=== PATIENT | female | born 1970 | race African-American/Black ===

== ENCOUNTER → 2023-11-15 | Day surgery (SDC) | payer OTHER | END | disposition home or self-care (01) | LOC: JMAMMO-SUR 08:45 | PROVIDERS: ATTEND Internal Medicine | PROC: 0H9U3ZX Drainage of Left Breast, Percutaneous Approach, Diagnostic (ICD-10-PCS; principal; 2023-11-15) | DX: N63.20 Unspecified lump in the left breast, unspecified quadrant (principal) | CPT/HCPCS: 19083; 87899; A4648 ==

== ENCOUNTER 2024-01-13 18:16 | Emergency (ER) | payer OTHER ==
[2024-01-13 18:23] VITALS: TEMP 98.9; BMI 27.3
[2024-01-13] MEDS ORDERED: ACETAMINOPHEN INJECTION 100 ML IVPB ONE (19:00)
[2024-01-13] MEDS ORDERED: METOCLOPRAMIDE HCL INJECTION 10 MG/2 ML VIAL ONE (19:00)
[2024-01-13] MEDS: METOCLOPRAMIDE HCL INJECTION 10 MG/2 ML VIAL IVPUSH ONE (19:30)
[2024-01-13] MEDS: ACETAMINOPHEN 1000 MG/100 ML BAG IVPB ONE (19:30)
[2024-01-13] MEDS: SODIUM CHLORIDE 0.9% 500 ML INFUS.BAG IV ONE (19:30)
[2024-01-13 19:47] LABS: BASO % 0.7 % (0-2.0); EOS % 0.4 % (0-4.5); HEMATOCRIT 43.3 % (32.4-45.2); HEMOGLOBIN 14.7 GM/dL (10.7-15.3); LYMPH % 20.6 % (8-40); MCH 31.1 pg (25.7-33.7); MCHC 33.9 g/dl (32.0-36.0); MEAN CELL VOLUME 91.9 fl (80-96); MEAN PLT VOLUME 8.9 fl (7.5-11.1); MONO % 12.5 % (3.8-10.2); NEUT % 65.8 % (42.8-82.8); PLATELET COUNT 254 10^3/uL (134-434); RBC 4.71 M/mm3 (3.60-5.2); RDW 13.5 % (11.6-15.6); WHITE BLOOD COUNT 6.8 K/mm3 (4.0-10.0)
[2024-01-13 19:49] LABS: EPI CELLS 14 /uL (0-25.1); HYALINE CASTS 0 /uL (0-3.1); PH,URINE 8.5 (5.0-8.0); URINE APPEARANCE Error; URINE BACTERIA 407 /uL (0-1359); URINE BILIRUBIN NEGATIVE (NEGATIVE); URINE COLOR YELLOW; URINE GLUCOSE (UA) NEGATIVE (NEGATIVE); URINE KETONE NEGATIVE (NEGATIVE); URINE LEUK ESTERASE 1+ (NEGATIVE); URINE NITRITE NEGATIVE (NEGATIVE); URINE PROTEIN NEGATIVE (NEGATIVE); URINE RBC 12 /uL (0-23.9); URINE WBC 20 /uL (0-25.8)
[2024-01-13] MEDS ORDERED: CEFTRIAXONE 1 GM/50 ML BAG ONE (20:00)
[2024-01-13 20:05] LABS: POTASSIUM 5.5 mmol/L (3.5-5.1)
[2024-01-13 20:06] LABS: CALCIUM 8.9 mg/dL (8.5-10.1)
[2024-01-13 20:07] LABS: ALBUMIN 3.4 g/dl (3.4-5.0); BLOOD UREA NITROGEN 9.4 mg/dL (7-18)
[2024-01-13 20:12] LABS: BILIRUBIN,TOTAL 2.8 mg/dL (0.2-1)
[2024-01-13] MEDS ORDERED: PROCHLORPERAZINE INJECTION 10 MG/2 ML VIAL ONE (20:39)
[2024-01-13] MEDS: PROCHLORPERAZINE INJECTION 10 MG/2 ML VIAL IVPB ONE (21:09)
[2024-01-13 22:03] VITALS: BP 130/89; PULSE 76; RESP 16
== END 2024-01-13 22:03 | disposition home or self-care (01) ==
LOC: JER 18:16
PROC: 3E03329 Introduction of Other Anti-infective into Peripheral Vein, Percutaneous Approach (ICD-10-PCS; principal; 2024-01-13)
PROC: 3E033NZ Introduction of Analgesics, Hypnotics, Sedatives into Peripheral Vein, Percutaneous Approach (ICD-10-PCS; 2024-01-13)
PROC: 3E033GC Introduction of Other Therapeutic Substance into Peripheral Vein, Percutaneous Approach (ICD-10-PCS; 2024-01-13)
PROC: 3E033GC Introduction of Other Therapeutic Substance into Peripheral Vein, Percutaneous Approach (ICD-10-PCS; 2024-01-13)
DX: N39.0 Urinary tract infection, site not specified (principal); R51.9 Headache, unspecified; R30.0 Dysuria; R35.0 Frequency of micturition; R50.9 Fever, unspecified; Z20.822 Contact with and (suspected) exposure to COVID-19
CPT/HCPCS: 0241U-QW; 36415; 70450-TC; 71046-TC-FY; 80053; 81003; 84132; 85025; 87086; 99285-25; J0131

== ENCOUNTER → 2024-01-15 | Day surgery (SDC) | payer OTHER ==
[~2024-01-15] MED LIST: DEXAMETHASONE SOD PHOSPHATE 4 MG/1 ML VIAL ONE; FENTANYL CITRATE/PF 50 MCG/ML VIAL ONE; LIDOCAINE HCL/PF 2% SDV 5ML VIAL ONE; MIDAZOLAM HCL 2 MG/2 ML SINGLE DOSE VIAL ONE; ONDANSETRON 4 MG/2 ML VIAL ONE; PROPOFOL 80 ML ONE
== END | disposition home or self-care (01) ==
LOC: JRADUS-SUR 09:19 → JMAMMO-SUR 09:19
PROVIDERS: ATTEND Surgery Surgical Oncology
PROC: BH01ZZZ Plain Radiography of Left Breast (ICD-10-PCS; principal; 2024-01-15)
DX: N60.92 Unspecified benign mammary dysplasia of left breast (principal)
CPT/HCPCS: 19281; A4648

== ENCOUNTER 2024-01-17 04:12 | Day surgery (SDC) | payer OTHER ==
[2024-01-11 11:39] VITALS: BMI 27.3
[2024-01-17] MEDS ORDERED: BUPIVACAINE HCL/PF 0.25% (2.5MG/ML) 10 ML VIAL ONE (07:23)
[2024-01-17] MEDS ORDERED: LIDOCAINE 1%/EPI 1:100000 (20 ML MULTI DOSE VIAL) ONE (07:24)
[2024-01-17] MEDS ORDERED: oxyCODONE HCL 5 MG TABLET PO PRN (07:51)
[2024-01-17] MEDS ORDERED: ONDANSETRON 4 MG/2 ML VIAL IVPUSH PRN (07:51)
[2024-01-17] MEDS ORDERED: LACTATED RINGERS SOLUTION 1,000 ML IV SCH (08:00)
[2024-01-17] MEDS: ceFAZolin SODIUM 1 GM VIAL IVPB ONE (08:09)
[2024-01-17] MEDS: LIDOCAINE 1%/EPI 1:100000 (50 ML MULTI DOSE VIAL) INF ONE (08:15)
[2024-01-17] MEDS: BUPIVACAINE HCL/PF 0.25% (2.5MG/ML) 10 ML VIAL IJ ONE ×2 (08:20→08:28)
[2024-01-17] MEDS ORDERED: BENZOIN/ALOE VERA/STORAX/TOLU 58 ML BOTTLE ONE (08:35)
[2024-01-17] MEDS ORDERED: MEPERIDINE HCL 25 MG/ML VIAL ONE (09:32)
[2024-01-17] MEDS: ACETAMINOPHEN 1000 MG/100 ML BAG IVPB ONE (09:35)
[2024-01-17] MEDS: ACETAMINOPHEN INJECTION 100 ML IVPB ONE (09:35)
[2024-01-17 11:59] VITALS: BP 108/56; PULSE 62; RESP 20; TEMP 97.5
== END 2024-01-17 13:42 | disposition home or self-care (01) ==
LOC: JASU-SURG 04:12
PROVIDERS: ATTEND Surgery Surgical Oncology
PROC: 0HBU0ZX Excision of Left Breast, Open Approach, Diagnostic (ICD-10-PCS; principal; 2024-01-17 08:00)
DX: N60.92 Unspecified benign mammary dysplasia of left breast (principal); N60.32 Fibrosclerosis of left breast
CPT/HCPCS: 76098-TC-FY; 81025; 88307-TC; 94760; J0131

== ENCOUNTER 2024-02-29 03:54 | Inpatient (IN) | payer OTHER ==
[2024-02-22 15:57] VITALS: BMI 27.3
[2024-02-29] MEDS ORDERED: ceFAZolin SODIUM 1 GM VIAL ONE ×2 (06:40→08:30)
[2024-02-29] MEDS: GABAPENTIN 300 MG CAPSULE PO ONE (07:00)
[2024-02-29] MEDS: PHENAZOPYRIDINE HCL 100 MG TABLET (FP) PO ONE (07:00)
[2024-02-29] MEDS: ACETAMINOPHEN 500 MG TABLET (FP) PO ONE (07:00)
[2024-02-29] MEDS ORDERED: PROPOFOL 20 ML ONE (07:54)
[2024-02-29] MEDS ORDERED: ROCURONIUM BROMIDE 50 MG/5 ML SYRINGE ONE (07:55)
[2024-02-29] MEDS ORDERED: FENTANYL CITRATE/PF 50 MCG/ML VIAL ONE ×6 (07:55→11:49)
[2024-02-29] MEDS ORDERED: MIDAZOLAM HCL 2 MG/2 ML SINGLE DOSE VIAL ONE (07:55)
[2024-02-29] MEDS: ceFAZolin SODIUM 1 GM VIAL IVPB ONE (08:20)
[2024-02-29] MEDS ORDERED: ONDANSETRON 4 MG/2 ML VIAL ONE (08:30)
[2024-02-29] MEDS ORDERED: DEXAMETHASONE SOD PHOSPHATE 4 MG/1 ML VIAL ONE (08:30)
[2024-02-29] MEDS ORDERED: KETOROLAC TROMETHAMINE 30 MG/1 ML VIAL ONE (08:30)
[2024-02-29] MEDS ORDERED: NEOSTIGMINE METHYLSULFATE 0.5 MG/1 ML - 10 ML MDV ONE (09:15)
[2024-02-29] MEDS ORDERED: GLYCOPYRROLATE 0.2 MG/1 ML VIAL ONE (09:25)
[2024-02-29] MEDS ORDERED: SUCCINYLCHOLINE CHLORIDE 200 MG/10 ML SYRINGE ONE (09:58)
[2024-02-29] MEDS ORDERED: oxyCODONE HCL 5 MG TABLET PO PRN ×3 (10:19→10:25)
[2024-02-29] MEDS ORDERED: ONDANSETRON 4 MG/2 ML VIAL IVPUSH PRN ×2 (10:19)
[2024-02-29] MEDS ORDERED: NALOXONE HCL 0.4 MG/ML VIAL IVPUSH PRN (10:19)
[2024-02-29] MEDS ORDERED: BISACODYL 5 MG TABLET.DR (FP) PO PRN (10:25)
[2024-02-29] MEDS ORDERED: SIMETHICONE 80 MG TAB.CHEW (FP) PO PRN (10:25)
[2024-02-29] MEDS ORDERED: DOCUSATE SODIUM 100 MG CAPSULE (FP) PO PRN (10:25)
[2024-02-29] MEDS: CEFAZOLIN 1 GM in DEXTROSE 5%-WATER - 50 ML IVPB ONE (11:58)
[2024-02-29] MEDS ORDERED: ACETAMINOPHEN INJECTION 100 ML IVPB ONE (12:26)
[2024-02-29] MEDS: ACETAMINOPHEN 1000 MG/100 ML BAG IVPB SCH ×2 (12:30→14:13)
[2024-02-29] MEDS: morphine SULFATE/PF 1 MG/2 ML (2cc Syringe - QUVA) ONE (12:36)
[2024-02-29] MEDS: morphine SULFATE/PF 1 MG/2 ML (2cc Syringe - QUVA) IT ONE (12:37)
[2024-02-29] MEDS: LACTATED RINGERS SOLUTION 1,000 ML IV SCH (13:40)
[2024-02-29] MEDS: ACETAMINOPHEN 325 MG TABLET (FP) PO SCH (14:15)
[2024-02-29] MEDS: FLU VACCINE (FLULAVAL) PF 60 MCG/0.5 ML SYRINGE 2023-2024 IM ONE (15:48)
[2024-02-29] MEDS: CEFAZOLIN 1 GM in DEXTROSE 5%-WATER - 50 ML IVPB SCH (16:05)
[2024-02-29] MEDS: IBUPROFEN 800 MG/8 ML IJ IVPB SCH (16:29)
[2024-02-29 19:59] LABS: HEMATOCRIT 37.5 % (32.4-45.2); HEMOGLOBIN 12.4 GM/dL (10.7-15.3); MCH 31.4 pg (25.7-33.7); MCHC 33.1 g/dl (32.0-36.0); MEAN CELL VOLUME 94.7 fl (80-96); MEAN PLT VOLUME 9.5 fl (7.5-11.1); PLATELET COUNT 241 10^3/uL (134-434); RBC 3.96 M/mm3 (3.60-5.2); RDW 13.7 % (11.6-15.6); WHITE BLOOD COUNT 14.6 K/mm3 (4.0-10.0)
[2024-02-29 20:06] LABS: POTASSIUM 4.4 mmol/L (3.5-5.1)
[2024-02-29 20:10] LABS: CALCIUM 8.5 mg/dL (8.5-10.1)
[2024-02-29 20:11] LABS: BLOOD UREA NITROGEN 11.5 mg/dL (7-18)
[2024-02-29 20:14] LABS: CREATININE 0.7 mg/dL (0.55-1.3)
[2024-03-01] MEDS: ACETAMINOPHEN 325 MG TABLET (FP) PO ONE (04:41)
[2024-03-01 07:50] LABS: HEMATOCRIT 34.9 % (32.4-45.2); HEMOGLOBIN 11.4 GM/dL (10.7-15.3); MCH 31.1 pg (25.7-33.7); MCHC 32.7 g/dl (32.0-36.0); MEAN PLT VOLUME 9.5 fl (7.5-11.1); PLATELET COUNT 223 10^3/uL (134-434); RBC 3.67 M/mm3 (3.60-5.2); RDW 13.4 % (11.6-15.6); WHITE BLOOD COUNT 15.5 K/mm3 (4.0-10.0)
[2024-03-01 08:04] LABS: POTASSIUM 3.9 mmol/L (3.5-5.1)
[2024-03-01 08:06] LABS: CALCIUM 8.5 mg/dL (8.5-10.1)
[2024-03-01 08:07] LABS: BLOOD UREA NITROGEN 10.5 mg/dL (7-18)
[2024-03-01 08:11] LABS: CREATININE 0.9 mg/dL (0.55-1.3)
[2024-03-01] MEDS: ENOXAPARIN NA (PORCINE) 40 MG/0.4 ML DISP.SYRIN SQ SCH (09:05)
[2024-03-01] MEDS: oxyCODONE HCL 5 MG TABLET PO PRN (11:04)
[2024-03-01] MEDS: ACETAMINOPHEN 500 MG TABLET (FP) PO SCH (11:05)
[2024-03-01] MEDS: IBUPROFEN 600 MG TABLET (FP) PO SCH (14:08)
[2024-03-01] MEDS ORDERED: oxyCODONE HCL 10 MG SUSTAINED ACTING TABLET PO SCH (22:00)
[2024-03-02] MEDS: ONDANSETRON 4 MG/2 ML VIAL IVPUSH PRN (10:09)
[2024-03-02 10:18] LABS: BASO % 0.7 % (0-2.0); EOS % 1.3 % (0-4.5); HEMATOCRIT 34.2 % (32.4-45.2); HEMOGLOBIN 11.2 GM/dL (10.7-15.3); LYMPH % 19.2 % (8-40); MCH 31.2 pg (25.7-33.7); MCHC 32.9 g/dl (32.0-36.0); MEAN CELL VOLUME 94.9 fl (80-96); MONO % 6.9 % (3.8-10.2); NEUT % 71.9 % (42.8-82.8); PLATELET COUNT 215 10^3/uL (134-434); RDW 13.5 % (11.6-15.6); WHITE BLOOD COUNT 7.5 K/mm3 (4.0-10.0)
[2024-03-02] MEDS: ACETAMINOPHEN/CAFFEINE/BUTALBITAL 1 TAB PO PRN (18:30)
[2024-03-03 08:32] VITALS: RESP 18
[2024-03-03] MEDS ORDERED: ACETAMINOPHEN/CAFFEINE/BUTALBITAL 1 TAB PO SCH (11:00)
[2024-03-03] MEDS: ACETAMINOPHEN 325 MG TABLET (FP) PO SCH (11:22)
[2024-03-03 13:20] VITALS: BP 147/69; PULSE 64; TEMP 97.5
== END 2024-03-03 16:00 | disposition home or self-care (01) | DRG 743 ==
LOC: J2C 03:54 → J6S 14:17
PROVIDERS: ADMIT Obstetrics & Gynecology; ATTEND Obstetrics & Gynecology
PROC: 0UT70ZZ Resection of Bilateral Fallopian Tubes, Open Approach (ICD-10-PCS; 2024-02-29)
PROC: 0UT90ZZ Resection of Uterus, Open Approach (ICD-10-PCS; principal; 2024-02-29 07:30)
DX: D25.1 Intramural leiomyoma of uterus (principal); D25.0 Submucous leiomyoma of uterus; D25.2 Subserosal leiomyoma of uterus; N92.0 Excessive and frequent menstruation with regular cycle; R51.9 Headache, unspecified; R11.0 Nausea
CPT/HCPCS: 36415; 70450-TC; 80048; 81025; 85025; 85027; 85651; 86850; 86900; 86901; 88307-TC; 90686; 94760; 97116-GP; 97162-GP; G0008; J0131

== ENCOUNTER 2024-03-21 20:01 | Observation (INO) | payer OTHER ==
[2024-03-21] MEDS: EPINEPHrine 1:1,000 0.3 MG/0.3 ML SYR IM ONE (20:05)
[2024-03-21] MEDS: DEXAMETHASONE SOD PHOSPHATE 10 MG/1 ML VIAL IVPB ONE (20:05)
[2024-03-21] MEDS: SODIUM CHLORIDE 0.9% 1000 ML INFUS.BAG IV ONE (20:10)
[2024-03-21] MEDS: methylPREDNISolone NA SUCC 125 MG/2 ML VIAL IVPB ONE (20:10)
[2024-03-21 20:12] VITALS: BMI 34.2
[2024-03-21] MEDS ORDERED: EPINEPHrine/PF 1 MG/1 ML (1:1,000) AMPULE ONE (20:13)
[2024-03-21] MEDS: FAMOTIDINE 20 MG/50 ML IVPB 20 MG/50 ML MG IVPB ONE (20:29)
[2024-03-21] MEDS ORDERED: IBUPROFEN 400 MG TABLET (FP) PO ONE (23:34)
[2024-03-21] MEDS: IBUPROFEN 600 MG TABLET (FP) PO ONE (23:36)
[2024-03-22] MEDS ORDERED: ACETAMINOPHEN INJECTION 100 ML IVPB ONE (02:24)
[2024-03-22 02:25] LABS: HEMATOCRIT 37.6 % (32.4-45.2); HEMOGLOBIN 12.6 GM/dL (10.7-15.3); MCHC 33.4 g/dl (32.0-36.0); MEAN CELL VOLUME 92.7 fl (80-96); MEAN PLT VOLUME 8.5 fl (7.5-11.1); PLATELET COUNT 402 10^3/uL (134-434); RBC 4.06 M/mm3 (3.60-5.2); RDW 13.2 % (11.6-15.6); WHITE BLOOD COUNT 10.8 K/mm3 (4.0-10.0)
[2024-03-22] MEDS: ACETAMINOPHEN 1000 MG/100 ML BAG IVPB ONE (02:42)
[2024-03-22 02:49] LABS: POTASSIUM 4.6 mmol/L (3.5-5.1)
[2024-03-22 02:51] LABS: CALCIUM 8.9 mg/dL (8.5-10.1)
[2024-03-22 02:52] LABS: ALBUMIN 3.1 g/dl (3.4-5.0); BLOOD UREA NITROGEN 10.4 mg/dL (7-18)
[2024-03-22 02:55] LABS: CREATININE 0.8 mg/dL (0.55-1.3)
[2024-03-22 02:56] LABS: TOT PROT 7.3 g/dl (6.4-8.2)
[2024-03-22 02:57] LABS: BILIRUBIN,TOTAL 0.3 mg/dL (0.2-1)
[2024-03-22 05:26] LABS: ANISOCYTOSIS 0; MACROCYTOSIS 0
[2024-03-22] MEDS ORDERED: ACETAMINOPHEN 500 MG TABLET (FP) PO PRN (05:28)
[2024-03-22] MEDS ORDERED: IBUPROFEN 400 MG TABLET (FP) PO PRN (05:29)
[2024-03-22 06:50] LABS: HEMATOCRIT 37.7 % (32.4-45.2); HEMOGLOBIN 12.4 GM/dL (10.7-15.3); MCH 30.8 pg (25.7-33.7); MEAN CELL VOLUME 93.3 fl (80-96); MEAN PLT VOLUME 9.4 fl (7.5-11.1); PLATELET COUNT 404 10^3/uL (134-434); RBC 4.04 M/mm3 (3.60-5.2); RDW 12.9 % (11.6-15.6); WHITE BLOOD COUNT 8.6 K/mm3 (4.0-10.0)
[2024-03-22 09:58] VITALS: RESP 19; TEMP 98
[2024-03-22] MEDS: ENOXAPARIN NA (PORCINE) 40 MG/0.4 ML DISP.SYRIN SQ SCH (11:15)
[2024-03-22] MEDS: FAMOTIDINE 20 MG TABLET PO SCH (11:16)
[2024-03-22 11:49] VITALS: BP 137/76; PULSE 65
== END 2024-03-22 11:52 | disposition home or self-care (01) ==
LOC: JER 20:01 → JERBED 03-22 02:12
PROVIDERS: ADMIT Internal Medicine; ATTEND Nurse Practitioner
PROC: 3E033NZ Introduction of Analgesics, Hypnotics, Sedatives into Peripheral Vein, Percutaneous Approach (ICD-10-PCS; principal; 2024-03-22)
PROC: 3E023GC Introduction of Other Therapeutic Substance into Muscle, Percutaneous Approach (ICD-10-PCS; 2024-03-22)
PROC: 3E0337Z Introduction of Electrolytic and Water Balance Substance into Peripheral Vein, Percutaneous Approach (ICD-10-PCS; 2024-03-22)
DX: T78.2XXA Anaphylactic shock, unspecified, initial encounter (principal); X58.XXXA Exposure to other specified factors, initial encounter; Z91.013 Allergy to seafood; Z90.79 Acquired absence of other genital organ(s)
CPT/HCPCS: 36415; 71045-TC-FY; 80053; 85025; 85027; 93005; 93010; 99285-25; G0378; J0131; J0171; J1100

== ENCOUNTER 2024-04-06 09:05 | Emergency (ER) | payer OTHER ==
[2024-04-06 09:20] VITALS: BMI 27.0
[2024-04-06] MEDS ORDERED: ACETAMINOPHEN INJECTION 100 ML IVPB ONE (10:12)
[2024-04-06] MEDS ORDERED: ACETAMINOPHEN 500 MG TABLET (FP) ONE (10:16)
[2024-04-06] MEDS: ACETAMINOPHEN 1000 MG/100 ML BAG IVPB ONE (10:22)
[2024-04-06] MEDS: ACETAMINOPHEN 500 MG TABLET (FP) PO ONE (10:23)
[2024-04-06 10:28] LABS: BASO % 0.5 % (0-2.0); EOS % 2.6 % (0-4.5); HEMATOCRIT 37.6 % (32.4-45.2); HEMOGLOBIN 12.9 GM/dL (10.7-15.3); LYMPH % 20.4 % (8-40); MCH 31.4 pg (25.7-33.7); MCHC 34.4 g/dl (32.0-36.0); MEAN CELL VOLUME 91.2 fl (80-96); MEAN PLT VOLUME 9.3 fl (7.5-11.1); MONO % 8.8 % (3.8-10.2); NEUT % 67.7 % (42.8-82.8); PLATELET COUNT 345 10^3/uL (134-434); RBC 4.12 M/mm3 (3.60-5.2); RDW 12.8 % (11.6-15.6)
[2024-04-06 10:34] LABS: INR 1.13 (0.83-1.09)
[2024-04-06 10:47] LABS: ACTIVATED PTT 34.3 SECONDS (25.2-36.5)
[2024-04-06 10:50] LABS: CALCIUM 7.7 mg/dL (8.5-10.1)
[2024-04-06 10:51] LABS: ALBUMIN 2.4 g/dl (3.4-5.0); BLOOD UREA NITROGEN 9.4 mg/dL (7-18); MAGNESIUM 2.2 mg/dL (1.8-2.4)
[2024-04-06 10:54] LABS: CREATININE 0.8 mg/dL (0.55-1.3)
[2024-04-06] MEDS ORDERED: VANCOMYCIN 1 GRAM (PRE-DOCKED) 1,000 MG/250 ML BAG IVPB ONE ×2 (14:24→15:11)
[2024-04-06] MEDS ORDERED: PIPERACILLIN/TAZOB 4.5 GM 4.5 GM/100 ML BAG IVPB ONE (14:24)
[2024-04-06] MEDS: PIPERACILLIN/TAZOB 4.5 GM 4.5 GM in DEXTROSE 5%-WATER 100 ML IVPB ONE (14:33)
[2024-04-06] MEDS: VANCOMYCIN 1,000 MG in DEXTROSE 5%-WATER - 250 ML IVPB ONE (15:17)
[2024-04-06 15:34] VITALS: BP 103/55; PULSE 57; RESP 16; TEMP 98
== END 2024-04-06 17:14 | disposition home or self-care (01) ==
LOC: JER 09:05
DX: L02.211 Cutaneous abscess of abdominal wall (principal)
CPT/HCPCS: 36415; 74177-TC; 80053; 83735; 85025; 85610; 85730; 86850; 86900; 86901; 87040; 93005; 93010; 99285-25; J0131; Q9967